=== PATIENT | female | born 1965 | race Caucasian/White ===

== ENCOUNTER → 2024-03-06 08:30 | Outpatient (REF) | payer SELFPAY | LOC: HWRAD 08:30 | PROVIDERS: ATTENDING PHYSICIAN Family Medicine | DX: R07.89 Other chest pain (principal) | CPT/HCPCS: 75571 ==

== ENCOUNTER → 2024-05-22 08:44 | Outpatient (REF) | payer BC, SELFPAY | LOC: HWRCS 08:44 | PROVIDERS: ATTENDING PHYSICIAN Internal Medicine Cardiovascular Disease; FAMILY PHYSICIAN Family Medicine | DX: R94.31 Abnormal electrocardiogram [ECG] [EKG] (principal); R07.89 Other chest pain; R60.0 Localized edema | CPT/HCPCS: 93306 ==

== ENCOUNTER → 2024-05-27 09:33 | Outpatient (REF) | payer BC, SELFPAY | LOC: RCS 09:33 | PROVIDERS: ATTENDING PHYSICIAN Internal Medicine Cardiovascular Disease; FAMILY PHYSICIAN Family Medicine | DX: R94.31 Abnormal electrocardiogram [ECG] [EKG] (principal); R07.89 Other chest pain | CPT/HCPCS: 93017 ==

== ENCOUNTER → 2024-06-09 12:25 | Outpatient (REF) | payer BC, SELFPAY | LOC: RCS 12:25 | PROVIDERS: ATTENDING PHYSICIAN Internal Medicine Cardiovascular Disease; FAMILY PHYSICIAN Family Medicine | DX: R94.39 Abnormal result of other cardiovascular function study (principal); R07.89 Other chest pain; R03.0 Elevated blood-pressure reading, without diagnosis of hypertension | CPT/HCPCS: 93017; 93350 ==

== ENCOUNTER → 2024-08-18 08:24 | Outpatient (REF) | payer BC, SELFPAY | LOC: HWWDC 08:24 | PROVIDERS: ATTENDING PHYSICIAN Obstetrics & Gynecology; FAMILY PHYSICIAN Family Medicine | DX: Z12.31 Encounter for screening mammogram for malignant neoplasm of breast (principal) | CPT/HCPCS: 77063; 77067 ==

== ENCOUNTER → 2024-10-30 11:51 | Outpatient (REF) | payer BC, SELFPAY | LOC: RAD 11:51 | PROVIDERS: ATTENDING PHYSICIAN Nurse Practitioner Family | DX: J11.1 Influenza due to unidentified influenza virus with other respiratory manifestations (principal); R05.3 Chronic cough | CPT/HCPCS: 71046 ==